=== PATIENT | male | born 1990 | race American Indian/Alaskan Native ===

== ENCOUNTER 2021-03-31 20:14 | Inpatient (IN) | payer SELFPAY ==
[2021-03-31] MEDS ORDERED: MAGNESIUM SULFATE 2 GM/50 ML BAG IV ONE ×2 (20:30→22:30)
--- NOTE | 2021-03-31 20:35 | Emergency Department Report ---
ED Asthma HPI - General Chief Complaint: Dyspnea/Respdistress Stated Complaint: ASTHMA EXACERBATION Time Seen by Provider: 03/31/21 20:26 Source: patient, EMS Mode of arrival: Stretcher Limitations: No Limitations - History of Present Illness Initial Comments: Patient is 30 years old male with history of asthma and HIV. Patient brought to the emergency room via EMS from home for evaluation of shortness of breath and difficulty breathing and generalized wheezing. Patient stated the symptoms started approximately 1 hour prior to coming to the ER. Patient also reported that he has been diagnosed with pneumonia. Patient received 7.5 mg of albuterol by EMS with some improvement. Patient currently denying any fever or chills. No nausea or vomiting. MD Complaint: "asthma attack", shortness of breath, wheezing -: hour(s) Severity: moderate Context: none known Treatments Prior to Arrival: inhaled bronchodilator - Related Data Allergies Allergy/AdvReac Type Severity Reaction Status Date / Time No Known Allergies Allergy Verified 03/31/21 21:39 ED Review of Systems ROS: Stated complaint: ASTHMA EXACERBATION Other details as noted in HPI Comment: All other systems reviewed and negative Constitutional: denies: chills, fever Respiratory: cough, shortness of breath, SOB with exertion, wheezing Cardiovascular: denies: chest pain, palpitations Gastrointestinal: denies: abdominal pain, nausea, vomiting Musculoskeletal: denies: back pain Neurological: denies: headache, weakness, numbness, paresthesias, confusion ED Past Medical Hx - Past Medical History Hx Asthma: Yes Additional medical history: PNEUMONIA, HIV ED Physical Exam - General Limitations: No Limitations General appearance: alert, in distress - Head Head exam: Present: atraumatic (Moderate respiratory distress), normocephalic, normal inspection - Eye Eye exam: Present: normal appearance - ENT ENT exam: Present: normal exam, normal orophraynx, mucous membranes moist - Neck Neck exam: Present: normal inspection. Absent: tenderness, meningismus - Respiratory Respiratory exam: Present: respiratory distress, wheezes, rhonchi, decreased breath sounds. Absent: rales - Cardiovascular Cardiovascular Exam: Present: regular rate, normal rhythm, normal heart sounds - GI/Abdominal GI/Abdominal exam: Present: soft, normal bowel sounds. Absent: distended, tenderness, guarding, rebound, rigid, organomegaly, mass, bruit, pulsatile mass - Extremities Exam Extremities exam: Present: normal inspection, full ROM, normal capillary refill. Absent: pedal edema, calf tenderness - Back Exam Back exam: Present: normal inspection, full ROM. Absent: CVA tenderness (R), CVA tenderness (L) - Neurological Exam Neurological exam: Present: alert, oriented X3, CN II-XII intact - Psychiatric Psychiatric exam: Present: normal mood - Skin Skin exam: Present: warm, intact, normal color ED Course Vital Signs 03/31/21 03/31/21 03/31/21 20:46 21:00 21:15 Temperature Pulse Rate 97 H 103 H 103 H Pulse Rate [ Anterior] Respiratory 13 Rate Respiratory Rate [Anterior] Blood Pressure 119/75 128/74 131/77 Blood Pressure [Left] O2 Sat by Pulse Oximetry 03/31/21 03/31/21 03/31/21 21:30 21:46 22:00 Temperature Pulse Rate 96 H 107 H 107 H Pulse Rate [ Anterior] Respiratory Rate Respiratory Rate [Anterior] Blood Pressure 127/69 114/60 108/58 Blood Pressure [Left] O2 Sat by Pulse Oximetry 03/31/21 03/31/21 22:08 23:00 Temperature 102.6 F H Pulse Rate 114 H Pulse Rate [ 101 H Anterior] Respiratory 20 Rate Respiratory 16 Rate [Anterior] Blood Pressure Blood Pressure 111/63 [Left] O2 Sat by Pulse 94 Oximetry ED Medical Decision Making - Lab Data Result diagrams: 03/31/21 23:32 03/31/21 23:32 - Radiology Data Radiology results: report reviewed - Medical Decision Making Patient is 30 years old male with history of asthma and HIV. Patient brought to the emergency room via EMS from home for evaluation of shortness of breath and difficulty breathing and generalized wheezing. Patient stated the symptoms started approximately 1 hour prior to coming to the ER. Patient also reported that he has been diagnosed with pneumonia. Patient received 7.5 mg of albuterol by EMS with some improvement. Patient currently denying any fever or chills. No nausea or vomiting. Patient received albuterol, Atrovent, Solu-Medrol and magnesium sulfate. Chest x-ray showed bilateral infiltrate consistent with atypical pneumonia. Patient found to be febrile with a fever of 101.2. Oxygen saturation dropped to 89% on room air. Patient received Rocephin and Zithromax. Patient started on fluids. I discussed the patient with Dr. Wells, he agreed to admit the patient to medical service for further management. Critical Care Time: Yes Critical care time in (mins) excluding proc time.: 35 Critical care attestation.: If time is entered above; I have spent that time in minutes in the direct care of this critically ill patient, excluding procedure time. ED Disposition Clinical Impression: Asthma exacerbation, Pneumonia, Acute respiratory failure with hypoxia, Suspected COVID-19 virus infection Disposition: 09 ADMITTED INPATIENT Is pt being admited?: Yes Condition: Stable Instructions: Community-Acquired Pneumonia, Adult, Bacterial Pneumonia (ED) Referrals: PRIMARY CARE, [Primary Care Provider] - 3-5 Days
--- NOTE | 2021-03-31 21:10 | XRay Report ---
CHEST 1 VIEW 03/31/2021 8:39 PM INDICATION / CLINICAL INFORMATION: Asthma. COMPARISON: 03/12/2018. FINDINGS: SUPPORT DEVICES: None. HEART / MEDIASTINUM: No significant abnormality. LUNGS / PLEURA: Increased interstitial markings right greater than left. This is a new finding. No pn eumothorax. ADDITIONAL FINDINGS: No significant additional findings. IMPRESSION: Increased interstitial markings bilaterally right greater than left. Atypical pneumonia i s favored. Signer Name: Dimitrios Chris MD Signed: 03/31/2021 9:06 PM Workstation Name: [id number]
[2021-03-31] MEDS ORDERED: ALBUTEROL 2.5 MG/3 ML NEBU IH ONE (22:30)
[2021-03-31] MEDS ORDERED: IPRATROPIUM 0.02% NEBU 2.5 ML IH ONE (22:30)
[2021-03-31] MEDS ORDERED: methylPREDNISolone Sod Succinate 125 MG/2 ML INJ IV ONE (22:30)
[2021-03-31] MEDS ORDERED: ACETAMINOPHEN 500 MG TAB PO ONE ×2 (22:59→23:00)
[2021-03-31] MEDS ORDERED: AZITHROMYCIN/NS 500 MG/250 ML 500 MG/250 ML BAG IV ONE (22:59)
[2021-03-31] MEDS ORDERED: cefTRIAXone/NS 1 GM/50 ML 1 GM/50 ML BAG IV ONE (22:59)
[2021-03-31] MEDS ORDERED: SODIUM CHLORIDE 0.9% 1000 ML 1,000 ML IV ONE (23:15)
[2021-03-31 23:52] LABS: Hematocrit 31.4 % (35.5-45.6); Hemoglobin 10.5 gm/dl (11.8-15.2); Mean Corpuscular HGB Conc 33 % (32-34); Mean Corpuscular Volume 87 fl (84-94); Platelet Count 313 K/mm3 (140-440); Red Blood Count 3.61 M/mm3 (3.65-5.03); Red Cell Distribution Width 17.4 % (13.2-15.2)
[2021-04-01 00:08] LABS: BUN/Creatinine Ratio 8; Blood Urea Nitrogen 10 mg/dL (9-20); Hemolysis Index 4
[2021-04-01] MEDS ORDERED: MORPHINE 2 MG/1 ML INJ IV PRN (01:17)
[2021-04-01] MEDS ORDERED: MAGNESIUM HYDROXIDE (MOM) ORAL LIQD UDC PO PRN (01:17)
[2021-04-01] MEDS ORDERED: MORPHINE 4 MG/1 ML INJ IV PRN (01:17)
[2021-04-01] MEDS ORDERED: ACETAMINOPHEN 325 MG TAB PO PRN (01:17)
[2021-04-01] MEDS ORDERED: ONDANSETRON 4 MG/2 ML INJ IV PRN (01:17)
--- NOTE | 2021-04-01 01:27 | History and Physical Report ---
History of Present Illness Date of examination: 04/01/21 Date of admission: 04/01/2021 Chief complaint: Shortness of Breath History of present illness: 30-year-old -[place] male with known history of asthma and HIV brought into the emergency room via EMS today for shortness of breath and wheezing. Symptoms were said to started about an hour prior to reporting to the emergency room. He denies any fever or chills, no chest pain, no nausea vomiting, no abdominal pain. Patient also indicates that he has been recently diagnosed with pneumonia. En route to the hospital patient received nebulizer treatments with some improvement. Work-up in the emergency room today, chest x-ray reveals increased interstitial markings bilaterally right greater than left. Atypical pneumonia is favored. Patient has been placed on nebulizing treatments IV steroid and empiric IV antibiotics. Past History Past Medical History: other (HIV positive, Asthma) Past Surgical History: No surgical history Social history: no significant social history Family history: no significant family history Medications and Allergies Allergies Allergy/AdvReac Type Severity Reaction Status Date / Time No Known Allergies Allergy Verified 03/31/21 21:39 Active Meds: Active Medications Acetaminophen (Acetaminophen 325 Mg Tab) 650 mg PO Q4H PRN PRN Reason: Pain MILD(1-3)/Fever >100.5/VALENZUELA Ondansetron HCl (Ondansetron 4 Mg/2 Ml Inj) 4 mg IV Q8H PRN PRN Reason: Nausea And Vomiting Sodium Chloride (Sodium Chloride 0.9% 10 Ml Flush Syringe) 10 ml IV BID CARLITA Review of Systems Constitutional: no fever, no chills Ears, nose, mouth and throat: no nasal congestion, no sore throat Cardiovascular: no chest pain, no palpitations Respiratory: cough, shortness of breath, wheezing Gastrointestinal: no abdominal pain, no nausea, no vomiting, no diarrhea Genitourinary Male: no dysuria, no hematuria, no nocturia Musculoskeletal: no neck pain, no low back pain Integumentary: no rash, no pruritis Neurological: no headaches, no confusion Psychiatric: no anxiety, no depression Endocrine: no polyphagia, no polydipsia, no polyuria, no nocturia Exam - Constitutional Vitals: Temp Pulse Resp BP Pulse Ox 102.6 F H 114 H 20 111/63 94 03/31/21 23:00 03/31/21 23:00 03/31/21 23:00 03/31/21 23:00 03/31/21 23:00 General appearance: Present: mild distress, well-nourished - EENT Eyes: Present: PERRL, EOM intact. Absent: scleral icterus ENT: hearing intact, clear oral mucosa, dentition normal - Neck Neck: Present: supple, normal ROM - Respiratory Respiratory effort: normal Respiratory: bilateral: wheezing - Cardiovascular Rhythm: regular Heart Sounds: Present: S1 & S2. Absent: gallop, systolic murmur, diastolic murmur, rub, click - Extremities Extremities: no ischemia, pulses intact, pulses symmetrical, No edema, normal temperature, normal color, Full ROM Peripheral Pulses: within normal limits - Abdominal General gastrointestinal: Present: soft, non-tender, non-distended, normal bowel sounds. Absent: mass - Integumentary Integumentary: Present: clear, warm, dry. Absent: rash - Musculoskeletal Musculoskeletal: strength equal bilaterally - Psychiatric Psychiatric: appropriate mood/affect, intact judgment & insight, memory intact, cooperative - Neurologic Neurologic: CNII-XII intact, no focal deficits, moves all extremities Results - Labs CBC & Chem 7: 03/31/21 23:32 03/31/21 23:32 Labs: Abnormal lab results 03/31/21 03/31/21 Range/Units 23:32 23:32 RBC 3.61 L (3.65-5.03) M/mm3 Hgb 10.5 L (11.8-15.2) gm/dl Hct 31.4 L (35.5-45.6) % RDW 17.4 H (13.2-15.2) % Potassium 3.4 L (3.6-5.0) mmol/L Carbon Dioxide 20 L (22-30) mmol/L Glucose 200 H (75-100) mg/dL Calcium 8.0 L (8.4-10.2) mg/dL Assessment and Plan - Patient Problems (1) Asthma exacerbation Current Visit: Yes Status: Acute Plan to address problem: Patient placed on nebulizing treatments and IV steroid. Keep O2 saturation greater or equal to 92%. (2) Pneumonia Current Visit: Yes Status: Acute Plan to address problem: Patient placed on empiric IV antibiotics. Will await culture results. (3) Person under investigation for COVID-19 Current Visit: Yes Status: Acute Plan to address problem: We will await COVID-19 PCR. (4) HIV positive Current Visit: Yes Status: Acute Plan to address problem: We will continue routine home medications. CD4 count unknown. (5) DVT prophylaxis Current Visit: Yes Status: Acute Plan to address problem: Patient placed on subcutaneous heparin. (6) Full code status Current Visit: Yes Status: Acute Plan to address problem: Patient is full code.
[2021-04-01] MEDS: IPRATROPIUM/ALBUTEROL SULFATE 3 ML AMPUL.NEB IH SCH ×5 (03:35→19:50)
[2021-04-01 03:39] LABS: Anisocytosis 1+; Basophils % (Manual) 0 % (0.0-1.8); Eosinophils % (Manual) 0 % (0.0-4.3); Platelet Estimate Consistent w Auto; Total Cells Counted 100
[2021-04-01 04:30] LABS: Bacteria,Urine 1+ /HPF (Negative); Bilirubin,Urine NEG (Negative); Blood,Urine MOD (Negative); Color,Urine Yellow (Yellow); Hyaline Casts,Urine 23 /LPF; Mucus,Urine 1+ /HPF; Urobilinogen,Urine < 2.0 mg/dL (<2.0)
[2021-04-01] MEDS: methylPREDNISolone Sod Succinate 40 MG/1 ML INJ IV SCH ×3 (05:44→21:34)
[2021-04-01] MEDS: HEPARIN 5,000 UNIT/1 ML VIAL SUB-Q SCH ×3 (05:44→21:33)
--- NOTE | 2021-04-01 08:31 | Event Note ---
Date: 04/01/21 This is a follow-up from an admission earlier this morning. Patient seen and discussed plan of care. Patient is adamant that he does not have COVID-19 pneumonia. However, Covid PCR testing is still pending. Chest x-ray revealed increased interstitial markings bilaterally. Atypical pneumonia favored. Continue IV steroids and IV antibiotics. The patient appears to have sepsis present on admission given the fever, tachypnea and diagnosis of pneumonia. Await ID consultation. Follow-up blood cultures. We will continue to plan as outlined in the H&P. Total visit time equals 35 minutes with greater than 50% spent on coordination of care and counseling.
[2021-04-01] MEDS: cefTRIAXone/NS 2 GM/100 ML 2 GM/100 ML BAG IV SCH (09:48)
[2021-04-01] MEDS: AZITHROMYCIN 250 MG TAB PO SCH (09:49)
[2021-04-01] MEDS ORDERED: AZITHROMYCIN/NS 500 MG/250 ML 500 MG/250 ML BAG IV SCH (10:00)
[2021-04-01] MEDS: SODIUM CHLORIDE 0.9% 1000 ML 1,000 ML IV SCH ×2 (10:57→18:25)
[2021-04-01] MEDS ORDERED: guaiFENesin 100 MG/5 ML ORAL LIQD PO PRN (16:32)
[2021-04-01] MEDS ORDERED: ZOLPIDEM 5 MG TAB PO PRN (20:10)
[2021-04-01] MEDS: NICOTINE 14 MG/24 HR PATCH TD SCH (21:34)
[2021-04-02] MEDS: IPRATROPIUM/ALBUTEROL SULFATE 3 ML AMPUL.NEB IH SCH ×4 (03:15→15:15)
[2021-04-02] MEDS: methylPREDNISolone Sod Succinate 40 MG/1 ML INJ IV SCH ×2 (05:28→14:27)
[2021-04-02] MEDS: HEPARIN 5,000 UNIT/1 ML VIAL SUB-Q SCH ×2 (05:28→14:26)
[2021-04-02] MEDS: SODIUM CHLORIDE 0.9% 1000 ML 1,000 ML IV SCH (05:35)
[2021-04-02 07:56] LABS: Hematocrit 29.7 % (35.5-45.6); Hemoglobin 9.9 gm/dl (11.8-15.2); Mean Corpuscular HGB Conc 34 % (32-34); Mean Corpuscular Volume 87 fl (84-94); Platelet Count 344 K/mm3 (140-440); Red Blood Count 3.43 M/mm3 (3.65-5.03)
[2021-04-02 08:13] LABS: Alanine Aminotransferase 11 units/L (7-56); Albumin 2.8 g/dL (3.9-5); Blood Urea Nitrogen 10 mg/dL (9-20); Calcium 8.1 mg/dL (8.4-10.2); Hemolysis Index 0
[2021-04-02 08:23] LABS: BUN/Creatinine Ratio 14
[2021-04-02 08:41] LABS: Band Neutrophils # (Manual) 0.4 K/mm3; Basophils % (Manual) 0 % (0.0-1.8); Eosinophils % (Manual) 0 % (0.0-4.3); Total Cells Counted 100
[2021-04-02 08:42] LABS: Anisocytosis 1+; Platelet Estimate Consistent w Auto
[2021-04-02] MEDS: AZITHROMYCIN 250 MG TAB PO SCH (09:48)
[2021-04-02] MEDS: cefTRIAXone/NS 2 GM/100 ML 2 GM/100 ML BAG IV SCH (09:48)
[2021-04-02] MEDS: NICOTINE 14 MG/24 HR PATCH TD SCH (09:48)
[2021-04-02 12:50] VITALS: BP 117/68
--- NOTE | 2021-04-02 15:25 | Discharge Summary ---
Providers - Providers Date of Admission: 04/01/21 01:17 Date of discharge: 04/02/21 Attending physician: CARMINE CARCAMO MD 04/02/21 14:02 Consult to Physician [CONS] Routine Comment: Consulting Provider: GENESIS RAMIREZ Physician Instructions: Reason For Exam: HIV, suspected PCP pneumonia Primary care physician: [employer] Hospitalization Condition: Critical Hospital course: 30-year-old -[place] male with known history of asthma and HIV brought into the emergency room via EMS today for shortness of breath and wheezing. Symptoms were said to started about an hour prior to reporting to the emergency room. He denies any fever or chills, no chest pain, no nausea vomiting, no abdominal pain. Patient also indicates that he has been recently diagnosed with pneumonia. En route to the hospital patient received nebulizer treatments with some improvement. Work-up in the emergency room today, chest x-ray reveals increased interstitial markings bilaterally right greater than left. Atypical pneumonia is favored. Patient has been placed on nebulizing treatments IV steroid and empiric IV antibiotics. Discharge disposition: Patient exhibits mild to moderate dyspnea with conversation. Though he has history of asthma since childhood and ran out of his Advair and rescue inhaler, he appears to have PCP pneumonia with history of HIV diagnosed about 10 years ago. He has a bilateral crackles prison up in the chest bilaterally. Chest x- ray shows prominent interstitial markings. These findings are highly concerning for PCP pneumonia. Per patient, he took medical therapy for about 5 months and off since 4-5 years. He does not remember when he had the CD4 count and viral load done. ID consult requested. However, patient left hospital AGAINST MEDICAL ADVICE . Patient stated that he got a new job offer and also approved for renting an apartment and had to go. Patient, currently is homeless. Recently moved from [place]. Disposition: LEFT AGAINST MEDICAL ADVICE Final Discharge Diagnosis (Prints w/discharge instructions): Acute hypoxic respiratory failure. Atypical bilateral pneumonia. Concerning for PCP pneumonia. History of HIV infection, noncompliant since years. History of bronchial asthma since childhood. Left hospital AMA Core Measure Documentation - Palliative Care Palliative Care/ Comfort Measures: Not Applicable - Core Measures Any of the following diagnoses?: none Exam - Constitutional Vitals: Temp Pulse Resp BP Pulse Ox 97.3 F L 92 H 18 117/68 98 04/02/21 11:53 04/02/21 09:25 04/02/21 11:53 04/02/21 11:53 04/02/21 09:25 General appearance: Present: mild distress, well-nourished - EENT Eyes: Present: PERRL, EOM intact ENT: other (No oropharyngeal thrush) - Respiratory Respiratory effort: labored Respiratory: bilateral: diminished, rales - Cardiovascular Rhythm: regular - Extremities Extremities: No edema - Abdominal General gastrointestinal: Present: soft, non-tender, non-distended, normal bowel sounds - Integumentary Integumentary: Absent: rash - Musculoskeletal Musculoskeletal: strength equal bilaterally - Neurologic Neurologic: moves all extremities, other (Alert and oriented with normal speech.) Plan Follow up with: PRIMARY CARE, [Primary Care Provider] - 3-5 Days Forms: AMA Form
== END 2021-04-02 15:10 | disposition left against medical advice (07) | DRG 193 ==
LOC: ED 20:14 → 3A 04-01 01:17
PROVIDERS: ADMIT Internal Medicine Geriatric Medicine; ATTEND Internal Medicine
DX: J18.9 Pneumonia, unspecified organism (principal); J96.01 Acute respiratory failure with hypoxia; J45.901 Unspecified asthma with (acute) exacerbation; Z20.822 Contact with and (suspected) exposure to COVID-19; Z21 Asymptomatic human immunodeficiency virus [HIV] infection status; Z91.19 Patient's noncompliance with other medical treatment and regimen
CPT/HCPCS: 36415; 71045; 80048; 80053; 81001; 82140; 83735; 85007; 85025; 87040; 94640; 94644; 94760; G0378; Q0162; J0456; J0696; J1644; J2270; J2920; J2930; J3475; J7030; U0003